=== PATIENT | male | born 1990 | race Caucasian/White ===

== ENCOUNTER → 2020-05-26 | Emergency (ER) | payer SELFPAY ==
[~2020-05-26] VITALS: Ht 188 cm; Wt 79.4 kg
[~2020-05-26] MED LIST: AZITHROMYCIN 250 MG TABLET PO ONE; DOXY100C2 PO; cefTRIAXone 1 GM in LIDOCAINE 1%, 20 ML MDV 2.1 ML IM ONE
[2020-05-26 04:02] VITALS: BP_SYST 143
[2020-05-26 04:48] VITALS: BP_SYST 143
== END | disposition home or self-care (01) ==
LOC: SED 04:01
DX: Z20.2 Contact with and (suspected) exposure to infections with a predominantly sexual mode of transmission (principal); F17.210 Nicotine dependence, cigarettes, uncomplicated
CPT/HCPCS: 96372; 99283; J0696; J2001; Q0144

== ENCOUNTER 2020-12-20 16:58 | Emergency (ER) | payer SELFPAY ==
[~2020-12-20] VITALS: Ht 188 cm; Wt 81.6 kg
[~2020-12-20 16:58] MED LIST changes: -AZITHROMYCIN 250 MG TABLET PO ONE; -DOXY100C2 PO; +DOXY100C5 PO; -cefTRIAXone 1 GM in LIDOCAINE 1%, 20 ML MDV 2.1 ML IM ONE
--- NOTE | 2020-12-20 17:15 | NUR ---
Pt walked in to ER with c/o burning and discharge x1 day. Reports h/o chlamydia and gonnorhea and symptoms are similar. V/S stable, no acute distress noted.
--- NOTE | 2020-12-20 17:15 | NUR ---
Pt triaged and placed in waiting room
--- NOTE | 2020-12-20 17:20 | NUR ---
ER Dr. Boo at bedside examining patient.
[2020-12-20 17:23] VITALS: BP_SYST 146
[2020-12-20] MEDS ORDERED: AZITHROMYCIN 250 MG TABLET PO ONE (17:30)
[2020-12-20] MEDS ORDERED: cefTRIAXone 250 MG VIAL IM ONE (17:30)
[2020-12-20] MEDS ORDERED: DOXY-244 PO (17:33)
--- NOTE | 2020-12-20 18:20 | NUR ---
Patient given written and verbal discharge instructions and verbalizes understanding. ER MD discussed with patient the results and treatment provided. Patient in stable condition. ID arm band removed. Rx of Doxycycline given. Patient educated on pain management and to follow up with PMD. Pain Scale 0. Opportunity for questions provided and answered. Medication side effect fact sheet provided.
[2020-12-20 18:23] VITALS: BP_SYST 146
[2020-12-24 09:41] LABS: CHLAMYDIA TRACHOMATIS NAA Positive (Negative); NEISSERIA GONORRHOEAE NAA Positive (Negative)
--- NOTE | 2020-12-24 10:39 | NUR ---
GIVEN REPORT OF +CHLYAMYDIA AND +GONORRHEA BY HEAT TREAT TECHNICIAN, DISCUSSED CASE WITH DR LABOY, PT TREATED WITH CORRECT ABX, CALLED AND LEFT MESSAGE ON GIVEN NUMBER [phone]
== END 2020-12-20 18:23 | disposition home or self-care (01) ==
LOC: SED 16:58
DX: N34.2 Other urethritis (principal); Z79.899 Other long term (current) drug therapy
CPT/HCPCS: 81002; 87491; 87591; 96372; 99283; J0696; Q0144

== ENCOUNTER 2021-06-29 13:40 | Emergency (ER) | payer SELFPAY ==
[~2021-06-29] VITALS: Ht 188 cm; Wt 81.6 kg
[~2021-06-29 13:40] MED LIST changes: +DOXY-244 PO
[2021-06-29 13:43] VITALS: BP_SYST 150
--- NOTE | 2021-06-29 13:43 | NUR ---
Patient to ER bed 4 to gown for evaluation. Side rails up.
--- NOTE | 2021-06-29 14:07 | NUR ---
ER at bedside examining patient.
--- NOTE | 2021-06-29 14:12 | NUR ---
Pt arrived to ER from home. Pt c/o tongue swelling and difficulty breathing and eating. Onset of tongue swelling past 48 hours. pain scale 8.5/10 pain radiates to his right earlobe. Denies N/V. Pt lost RX ABX for TX of tongue swelling.
[2021-06-29] MEDS: DEXAMETHASONE SOD PHOSPHATE 10 MG/ML VIAL IM ONE (14:34)
[2021-06-29] MEDS: KETOROLAC TROMETHAMINE 30 MG VIAL IM ONE (14:36)
[2021-06-29] MEDS: AMOXICILLIN/CLAVULANATE POTASSIUM 875 MG TABLET PO ONE (14:36)
[2021-06-29] MEDS: LIDOCAINE VISCOUS 2%, 15 ML UDC MM ONE (14:37)
[2021-06-29] MEDS ORDERED: AUG875 PO (15:06)
[2021-06-29] MEDS ORDERED: DEC4 PO (15:06)
[2021-06-29] MEDS ORDERED: IBUP-1969 PO (15:06)
[2021-06-29 15:29] VITALS: BP_SYST 155
--- NOTE | 2021-06-29 15:30 | NUR ---
Patient given written and verbal discharge instructions and verbalizes understanding. ER MD discussed with patient the results and treatment provided. Patient in stable condition. ID arm band removed. IV catheter removed intact and dressing applied, no active bleeding. Rx of Augmentin, Decadron, and Ibuprofen given. Patient educated on pain management and to follow up with PMD. Pain Scale 2. Opportunity for questions provided and answered. Medication side effect fact sheet provided.
== END 2021-06-29 15:29 | disposition home or self-care (01) ==
LOC: SED 13:40
DX: J36 Peritonsillar abscess (principal); Z79.899 Other long term (current) drug therapy
CPT/HCPCS: 96372; 99284; J1100; J1885; J2001

== ENCOUNTER 2021-07-28 00:40 | Emergency (ER) | payer SELFPAY ==
[~2021-07-28] VITALS: Ht 188 cm; Wt 81.6 kg
[~2021-07-28 00:40] MED LIST changes: +AUG875 PO; +DEC4 PO; +IBUP-1969 PO
[2021-07-28] MEDS ORDERED: cefTRIAXone 1 GM in LIDOCAINE 1%, 20 ML MDV 2.1 ML IM ONE (01:45)
[2021-07-28 02:00] VITALS: BP_SYST 139
[2021-07-28] MEDS ORDERED: CEPH-548 PO (02:18)
[2021-07-28 02:43] VITALS: BP_SYST 135
== END 2021-07-28 02:43 | disposition home or self-care (01) ==
LOC: SED 00:40
DX: L03.115 Cellulitis of right lower limb (principal); Z79.899 Other long term (current) drug therapy
CPT/HCPCS: 96372; 99283; J0696; J2001